=== PATIENT | male | born 1935 | race Caucasian/White ===

== ENCOUNTER → 2019-02-02 | Outpatient (CLI) | payer MEDICARE ==
--- NOTE | 2019-02-03 11:30 | PCVCIMAG ---
APPROVED REPORT Study performed: 02/02/2019 16:47:08 EXAM: Comprehensive 2D, Doppler, and color-flow Echocardiogram Patient Location: Echo lab Status: routine BSA: 2.04 HR: 63 bpmBP: 122/60 mmHg Rhythm: NSR, pacemaker Other Information Study Quality: Adequate Indications Dyspnea Pacemaker weakness 2D Dimensions IVSd: 14.83 (7-11mm) LVDd: 53.27 mm PWd: 13.32 (7-11mm)Ascending Ao: 35.27 (22-36mm) LVDs: 43.01 (25-40mm) Left Atrium: 45.62 (27-40mm) Aortic Root: 33.80 mm LV Single Plane 4CH: 47.09 % LV Single Plane 2CH: 47.87 % Biplane EF: 47.9 % Volumes Left Atrial Volume (Systole) Single Plane 4CH: 141.64 mLSingle Plane 2CH: 134.50 mL LA ESV Index: 68.00 mL/m2 Aortic Valve AoV Peak Terry.: 1.45 m/s AO Peak Gr.: 8.37 mmHgLVOT Max P.70 mmHg LVOT Max V: 0.96 m/s Mitral Valve E/A Ratio: 3.0 MV Decel. Time: 262.42 ms MV E Max Terry.: 1.12 m/s MV A Terry.: 0.37 m/s IVRT: 110.73 ms Pulmonary Valve PV Peak Terry.: 1.09 m/sPV Peak Gr.: 4.77 mmHg Pulmonary Vein P Vein S: 0.28 m/s P Vein D: 0.35 m/s P Vein S/D Ratio: 0.80 Tricuspid Valve TR Peak Etrry.: 3.41 m/s TR Peak Gr.: 46.59 mmHg Left Ventricle The left ventricle is normal size. There is normal LV segmental wall motion. Mild to moderate concentric left ventricular hypertrophy. Left ventricular systolic function is mildly decreased. LVEF is 45%. Grade II - pseudonormal filling dynamics. Right Ventricle The right ventricle is normal size. The right ventricular systolic function is normal. Pacemaker lead is present in the right ventricle. Atria Left atrium is severely dilated. Right atrium is severely dilated. A pacemaker is seen in the right atrium consistent with history. Aortic Valve Mild aortic valve sclerosis. Trace aortic regurgitation. There is no aortic valvular stenosis. Mitral Valve Heavy posterior mitral annular calcification. Mild mitral regurgitation. No evidence of mitral valve stenosis. Tricuspid Valve The tricuspid valve is normal in structure. Mild to moderate tricuspid regurgitation with PAP of 54 mmHg. Pulmonic Valve The pulmonary valve is normal in structure. Trace pulmonic regurgitation. Great Vessels The aortic root is normal in size. IVC is normal in size and collapses >50% with inspiration. Pericardium There is no pericardial effusion. There is no pleural effusion. <Conclusion> The left ventricle is normal size. Mild to moderate concentric left ventricular hypertrophy. Left ventricular systolic function is mildly decreased. LVEF is 45%. Grade II - pseudonormal filling dynamics. The right ventricle is normal size. Left atrium is severely dilated. Left atrium is severely dilated. Right atrium is severely dilated. A pacemaker is seen in the right atrium consistent with history. Mild aortic valve sclerosis. Trace aortic regurgitation. Mild mitral regurgitation. Heavy posterior mitral annular calcification. Pacemaker lead is present in the right ventricle. Mild to moderate tricuspid regurgitation with PAP of 54 mmHg. The aortic root is normal in size. There is no pericardial effusion.
== END | disposition home or self-care (01) ==
LOC: PCVCIMAG 15:45
PROVIDERS: ATTEND Internal Medicine
DX: I08.3 Combined rheumatic disorders of mitral, aortic and tricuspid valves (principal); R06.00 Dyspnea, unspecified; R53.1 Weakness; Z95.0 Presence of cardiac pacemaker
CPT/HCPCS: 93306